=== PATIENT | female | born 1930 | race Caucasian/White ===

== ENCOUNTER 2018-12-30 22:19 | Observation (INO) | payer MEDICARE ==
[2018-12-30 22:57] LABS: #Basophils 0.1 thou/uL (0.0-0.2); #Eosinphils 0.1 thou/uL (0.0-0.7); #Lymphocytes 1.4 thou/uL (1.20-3.40); #Monocytes 0.9 thou/uL (0.11-0.59); #Neutrophils 8.6 thou/uL (1.40-6.50); %Basophils 0.6 % (0.0-1.0); %Eosinophils 1.1 % (0.0-10.0); %Lymphocytes 12.6 % (21.0-51.0); %Monocytes 8.2 % (0.0-10.0); %Neutrophils 77.5 % (42.0-75.0); Hemoglobin 11.9 g/dL (12.0-16.0); Mean Corpuscular HGB CONC 32.8 g/dL (32.0-36.0); Mean Corpuscular Hemoglobin 31.9 pg (27.0-31.0); Mean Corpuscular Volume 97.1 fL (78.0-98.0); Mean Platelet Volume 7.4 fL (7.4-10.4); Platelet Count 253 thou/uL (130-400); RBC Distribution Width 12.5 % (11.5-14.5); Red Blood Cell (RBC) Count 3.75 mill/uL (4.20-5.40)
--- NOTE | 2018-12-30 23:14 | RAD ---
AP VIEW CHEST: 12/30/18 HISTORY: Syncope. AP view chest is obtained on 12/30/18. Comparison made to previous exam from 07/22/18. AP view chest demonstrates cardiomegaly. There is calcification of the aorta. Bilateral shoulder oste oarthritic changes seen. No evidence of effusions, pneumonia or pneumothorax seen. IMPRESSION: No evidence of acute intrathoracic abnormality seen. POS: [facility]
[2018-12-30 23:22] LABS: ALT (SGPT) 12 U/L (8-55); AST (SGOT) 20 U/L (5-34); Alkaline Phosphatase 82 U/L (40-150); Anion Gap 14 mmol/L (10-20); BUN (Urea Nitrogen) 25 mg/dL (9.8-20.1); Bilirubin, Total 0.2 mg/dL (0.2-1.2); Calc. Creatinine Clearance 0 mL/min (70-130); Calcium 9.7 mg/dL (7.8-10.44); Carbon Dioxide 23 mmol/L (23-31); Chloride 105 mmol/L (98-107); Estimated GFR-MDRD 50; Globulin 3.3 g/dL (2.4-3.5); Glucose 126 mg/dL (83-110); Potassium 4.1 mmol/L (3.5-5.1); Protein, Total 7.3 g/dL (6.0-8.3); Sodium 138 mmol/L (136-145)
--- NOTE | 2018-12-30 23:29 | CT ---
CT BRAIN: 12/30/18 HISTORY: Syncope. Noncontrast enhanced CT images of the brain is obtained from base of the skull through the vertex. Br ain and bone windows obtained. Comparison made to previous exam from 04/13/18. Noncontrast enhanced CT images of the brain demonstrate diffuse cortical atrophy and deep white matte r ischemic changes. No evidence of acute intracranial masses , hemorrhages, strokes or contusions se en. The patient does appear to have a left middle cranial fossa arachnoid cyst which is stable. IMPRESSION: No evidence of acute intracranial abnormality seen. POS: [facility]
[2018-12-30 23:40] LABS: Bilirubin Small (Negative); Blood, Urine Negative (Negative); Clarity CLOUDY (Clear); Glucose, Urine (Dipstick) Negative (Negative); Leukocyte Trace (Negative); Nitrite Negative (Negative); Protein, Urine (Dipstick) 30 mg/dL (Neg-Trace); Urobilinogen 0.2 mg/dL (0.2-1.0)
[2018-12-30 23:42] LABS: Bacteria/HPF None Seen HPF (None Seen)
[2018-12-30 23:45] LABS: Pathc Cast-AUWi Flag 5.16 (0-2.49)
[2018-12-30 23:53] LABS: RBC/HPF 0-3 HPF (0-3)
[2018-12-30 23:55] LABS: Crystals/HPF 4+ CA OXALATE HPF (Negative); Hyaline Casts/LPF NONE SEEN LPF (0-3 Hyaline); Other Casts/LPF None Seen LPF (0-3 Hyaline); Renal Epithelial None Seen HPF (0-3); Transitional Epithelial NONE SEEN HPF (0-3)
[2018-12-31] MEDS ORDERED: cefTRIAXone\\ROCEPHIN 1 GM VIAL ONE (00:08)
[2018-12-31] MEDS ORDERED: Aspirin 325 MG TAB ONE (00:18)
[2018-12-31 02:08] VITALS: BMI 25.3
[2018-12-31 02:49] LABS: Troponin I Less than 0.010 ng/mL (< 0.028)
[2018-12-31 04:51] LABS: Folate (Folic Acid) 16.7 ng/mL (7.0-31.4)
[2018-12-31 07:08] LABS: Troponin I Less than 0.010 ng/mL (< 0.028)
[2018-12-31] MEDS ORDERED: Acetaminophen 325 MG TAB PO PRN (09:28)
[2018-12-31] MEDS ORDERED: Senokot S 8.6-50 MG TAB PO PRN (09:28)
--- NOTE | 2018-12-31 09:51 | ULT ---
BILATERAL CAROTID DUPLEX ULTRASOUND: HISTORY: Syncope TECHNIQUE: Grayscale, color-flow and spectral Doppler ultrasound imaging of the extracranial carotid artery syst ems was performed bilaterally. FINDINGS: Mild plaque formation. The peak systolic velocity in the right ICA measures 71 cm/s. The peak systolic velocity in the left ICA measures 52 cm/s. Vertebral flow: antegrade, bilaterally. . IMPRESSION: No hemodynamically significant stenosis of Both ICAs.
--- NOTE | 2018-12-31 13:13 | HP ---
PRIMARY CARE PHYSICIAN: Jose Raul Hopkins DO CHIEF COMPLAINT: Syncope. HISTORY OF PRESENT ILLNESS: Ms. Polk is an 88-year-old female, who presented to the emergency room yesterday for altered mental status just OUTPLACEMENT CONSULTANT. The patient reports they were sitting on a campfire while they were camping. The patient's daughter reports that the patient looked over 1 of the tents, asked who were sleeping in them and stated that she was going to get up and go have a nap that she was very tired and when she was about to get up and help her get up and go over to the tent. She said she had a syncopal episode. She reports the patient was not breathing, but was able to kind of "slap for around a little bit" and the patient eventually came to LOC lasted for about 1 minute and then, the patient's daughter stated while in the emergency room, the patient was back to her old self. The patient does not report any memory of this. Only other complaint is the increased urinary frequency and daughter reports that the patient had slept all day yesterday, which was unusual. She denied any cough, diarrhea, or fever. Denied any abdominal pain. Denies any pain whatsoever. Denies any changes in eating or drinking habits. The patient does report this is the fifth time the patient has become pale and diaphoretic, but the only time that she has ever syncopized. They have seen the patient's PCP for this, but has always been within normal limits when they go see him. So they have been unable to diagnose what has been going on with her. Daughter does report the patient does have slight dementia and she is on her medication that Dr. Hopkins has started. Daughter lives with the patient. She denies having a adaptive physical education specialist. Denies ever having a workup by Cardiology. Troponins x3 here were negative. There were no EKG changes. The patient is not on any medication for blood pressure. The patient had a CT of the brain while in the emergency room, which showed no evidence of acute intracranial abnormality. The patient also had a chest x-ray, which showed no acute intrathoracic abnormality. Urinalysis in the emergency room showed positive for leukocytes, white blood cells, and squamous cells, but no bacteria, that was sent off for culture and they did treat that with the Rocephin IV piggyback. BNP was 176. BUN is 25 and glucose 126. White blood cell count is 11 and hemoglobin 11.9. The patient subsequently admitted to the stroke unit for further management and for syncope workup. PAST MEDICAL HISTORY: Pertinent for degenerative joint disease and dementia. PAST SURGICAL HISTORY: Includes tonsillectomy, 2 sections, and appendectomy. PSYCHIATRIC HISTORY: None. SOCIAL HISTORY: She has no smoking history. Denies any alcohol or drug use. Lives at home with her family. ALLERGIES: CODEINE. CURRENT MEDICATIONS: 1. Risperidone 0.25 mg p.o. once a day. 2. Bentyl 20 mg p.o. b.i.d. p.r.n. 3. Primidone 50 mg p.o. once a day. 4. Donepezil 10 mg p.o. once a day. 5. Mirtazapine 15 mg p.o. once a day. 6. Meloxicam 7.5 mg p.o. daily. 7. Centrum Silver 1 tablet p.o. daily. 8. Vitamin D with calcium 1 tablet once a day. 9. Naproxen 250 mg p.o. b.i.d. as needed. REVIEW OF SYSTEMS: The patient reports increased frequency. She denies any mental status changes, paralysis, headache, paresthesias, sensory changes, numbness, tingling, weakness on extremities. Denies any chest pain, shortness of breath, or palpitations. All other systems are reviewed and negative unless mentioned in the HPI. PHYSICAL EXAMINATION: VITAL SIGNS: Blood pressure 115/66, pulse is 66, respirations 14, temperature is 98, and pO2 saturations are 97% on room air. CONSTITUTIONAL: The patient is nontoxic, appears pain free. She is alert and oriented to person, place, and time. HEENT: Head is atraumatic and normocephalic. Eyes; eyelids are normal to inspection. Pupils are equally round and reactive to light. Extraocular muscles are intact. ENT, mouth exam is normal. Mucous membranes are moist. NECK: Normal range of motion. Trachea is midline. RESPIRATORY: Chest, breath sounds are clear. CARDIOVASCULAR: Heart rate is regular rate and rhythm. Heart sounds are normal. ABDOMEN: Nontender. Bowel sounds are heard. BACK: Normal inspection. Normal range of motion. EXTREMITIES: Upper extremity, normal range of motion. Motor strength is normal. Sensation intact. Radial pulses are equal bilaterally. Lower extremity, normal range of motion. Motor strength is normal. Sensation intact. Pedal pulses are equal. No edema is noted. NEURO: The patient is oriented to person, place, and time. Speech is normal. No focal motor or sensory deficits are noted. SKIN: Warm, dry, and normal in color. IMAGING: EKG in the emergency room shows beats per minute 64, normal sinus rhythm, axis is left, low voltage QRS, possible lateral infarct, age indeterminate. PERTINENT LABS: Urine; positive leukocyte, nitrite negative, protein, ketone, and bilirubin positive, white blood cells and squamous cells are seen, no bacteria. Troponin x3 are undetectable. BNP 176. Sodium is 138, potassium 4.1, chloride 105, carbon dioxide 23, gap is 14, BUN is 25, creatinine is 1.04, estimated GFR is 50, glucose is 126, calcium is 9.7, bilirubin is 0.2. Liver enzymes are unremarkable. White blood cell count is 11, red blood cell count is 3.75, hemoglobin is 11.9, and hematocrit is 36.4. ASSESSMENT AND PLAN: 1. Syncope. We will obtain an MRI of the brain, carotid Dopplers, and echocardiogram. We will ask Cardiology to consult. 2. Urinary tract infection. Treat with Rocephin. We will send that off for culture. 3. Dementia. We will continue home medication. 4. Deep venous thrombosis and gastrointestinal prophylaxis will be started. Dr. Stubbs will be consulted for any further management recommendations. 5. Hospital course will be dependent on clinical findings. Job ID: [id number]
[2018-12-31] MEDS: Naproxen 500 MG TAB PO SCH (16:45)
[2018-12-31] MEDS ORDERED: NAPROXEN SODIUM 440 MG PO SCH (17:00)
--- NOTE | 2018-12-31 21:31 | CON ---
DATE OF CONSULTATION: HISTORY: Sandi Polk is an 88-year-old white female with apparently a history of mild dementia. She was camping out with her family and stood up and then apparently had a syncopal episode. She appeared to be apneic for a short period of time and then regained consciousness approximately 1 minute later. She denies any history of chest pain or shortness of breath. She apparently has had other episodes, where she becomes pale and diaphoretic, but never actually passes out. Brain CT scan in the emergency room showed no evidence of significant abnormalities. PAST MEDICAL HISTORY: She denies any history of hypertension, diabetes, or hypercholesterolemia. She does have dementia. PAST SURGICAL HISTORY: 1. Tonsillectomy. 2. Two sections. 3. Appendectomy. CURRENT MEDICATIONS: 1. Risperidone 0.25 mg daily. 2. Bentyl 20 mg b.i.d. p.r.n. 3. Primidone 50 mg daily. 4. Benazepril 10 mg daily. 5. Mirtazapine 15 mg daily. 6. Meloxicam 7.5 mg daily. 7. Centrum Silver. 8. Vitamin D. 9. Naproxen 250 b.i.d. p.r.n. ALLERGIES: CODEINE. SOCIAL HISTORY: She does not smoke or drink. REVIEW OF SYSTEMS: A 10-point review of systems unremarkable. PHYSICAL EXAMINATION: VITAL SIGNS: Blood pressure 115/56 and pulse of 68. She has not had any significant arrhythmias on the monitor. HEENT: PERRL. NECK: Supple. CHEST: Clear. CARDIAC: S1 and S2 are normal without any S3, S4, or murmurs. Carotid upstrokes normal without bruits. ABDOMEN: Normal bowel sounds without tenderness or organomegaly. EXTREMITIES: Revealed no clubbing, cyanosis, or edema. NEUROLOGIC: Grossly intact. SKIN: Warm and dry. LABORATORY DATA: EKG revealed normal sinus rhythm with left axis deviation, low voltage, possible lateral infarction. White count 11,000, hemoglobin 11.9, hematocrit 36.4, and platelets 253,000. Sodium 138, potassium 4.1, chloride 105 , carbon dioxide 23, BUN 25, creatinine 1.04, and glucose 124. Cardiac enzymes were negative x3. BNP 176.1. Urinalysis reveals 7-10 wbc's, 4-6 epithelial cells, no bacteria seen. Culture thus far is negative. IMPRESSION: 1. Episode of syncope of unknown etiology. 2. Mild dementia. 3. Osteoarthritis. PLAN: Echocardiogram and carotid Dopplers to be performed. The patient will continue to be monitored. It sounds as if she has had multiple such episodes of extreme weakness, but this is the only time she actually has had true episode of syncope. Further discussions will be held with the daughter when she is here. Our options would be to send her home with a month long monitor. However, if these episodes are less frequent, consideration could be given to implantation of an implantable loop recorder. Job ID: [id number] MTDD
[2018-12-31] MEDS: Famotidine 20 MG TAB PO SCH (21:37)
[2018-12-31] MEDS: Primidone 50 MG TAB PO SCH (21:37)
[2018-12-31] MEDS: Mirtazapine 15 MG TAB PO SCH (21:37)
[2018-12-31] MEDS: Donepezil HCl 10 MG TAB PO SCH (21:37)
[2018-12-31] MEDS: cefTRIAXone\\ROCEPHIN 1 GM in Sodium Chloride 0.9% 100 ML IVPB SCH (22:35)
[2019-01-01 05:40] LABS: #Eosinphils 0.2 thou/uL (0.0-0.7); #Monocytes 0.7 thou/uL (0.11-0.59); #Neutrophils 5.9 thou/uL (1.40-6.50); %Basophils 0.5 % (0.0-1.0); %Eosinophils 2.1 % (0.0-10.0); %Lymphocytes 22.9 % (21.0-51.0); %Monocytes 8.1 % (0.0-10.0); %Neutrophils 66.4 % (42.0-75.0); Hemoglobin 10.5 g/dL (12.0-16.0); Mean Corpuscular HGB CONC 33.5 g/dL (32.0-36.0); Mean Corpuscular Hemoglobin 32.6 pg (27.0-31.0); Mean Corpuscular Volume 97.4 fL (78.0-98.0); Mean Platelet Volume 7.6 fL (7.4-10.4); Platelet Count 232 thou/uL (130-400); RBC Distribution Width 12.7 % (11.5-14.5); Red Blood Cell (RBC) Count 3.21 mill/uL (4.20-5.40); White Blood Cell (WBC) Count 8.9 thou/uL (4.8-10.8)
[2019-01-01 06:09] LABS: Anion Gap 13 mmol/L (10-20); BUN (Urea Nitrogen) 21 mg/dL (9.8-20.1); Calc. Creatinine Clearance 38 mL/min (70-130); Calcium 9.1 mg/dL (7.8-10.44); Carbon Dioxide 21 mmol/L (23-31); Chloride 109 mmol/L (98-107); Estimated GFR-MDRD 57; Glucose 99 mg/dL (83-110); Potassium 4.3 mmol/L (3.5-5.1); Sodium 139 mmol/L (136-145)
[2019-01-01] MEDS: Famotidine 20 MG TAB PO SCH ×2 (08:26→21:31)
[2019-01-01] MEDS: Enoxaparin Sodium 40 MG/0.4 ML SYRINGE SC SCH (08:27)
[2019-01-01] MEDS: Naproxen 500 MG TAB PO SCH ×2 (08:27→17:50)
[2019-01-01] MEDS: Meloxicam 7.5 MG TAB PO SCH (08:27)
[2019-01-01] MEDS ORDERED: Non-Formulary Item 1 EACH (Cholecalciferol (Vitamin D3) [Vitamin D] 1,000 UNIT) PO SCH (09:00)
--- NOTE | 2019-01-01 11:58 | MRI ---
MRI Brain WO Con: 01/01/2019 12:00 AM CLINICAL HISTORY: Syncope. COMPARISON: CT head on 12/30/2018 FINDINGS: There is diffuse cerebral volume loss with prominence of the extra-axial spaces. Encephalomalacia inv olving the anterior left temporal lobe is again present. The ventricular system is normal in size, shape, and position for the degree of sulcal atrophy. There are punctate and patchy areas of increased FLAIR and T2-weighted signal intensity in the perive ntricular and subcortical white matter which are nonspecific but likely reflective of chronic small vessel ischemic changes. Increased FLAIR and T2-weighted signal intensity are also seen within the po ns bilaterally also likely reflective of chronic small vessel ischemic changes. There is no evidence of an acute infarction. The septum pellucidum and third ventricle are in the midline. Appropriate flow voids are demonstrated the base the brain. Jackson lenses are not visualized. The paranasal sinuses and remainder the skull base demonstrate a normal MRI appearance. IMPRESSION: 1. No acute intracranial abnormalities demonstrated. 2. Cerebral volume loss and chronic small vessel ischemic changes. 3. Stable encephalomalacia left anterior temporal lobe.
--- NOTE | 2019-01-01 19:41 | PRG ---
DATE OF SERVICE: 01/01/2019 SUBJECTIVE: Ms. Polk is a pleasant 88-year-old female with past medical history significant for hypertension and mild dementia along with osteoarthritis, who presented to the hospital after suffering a syncopal event while on a camping trip with her family at [facility]. This morning, the patient feels well. She denies any chest pain or shortness of breath. She denies any dizziness or weakness. Her appetite is good. She denies any palpitations or weak spells. OBJECTIVE: VITAL SIGNS: Blood pressure 139/59, pulse 68, O2 saturation is 96% on room air, respirations 18. The patient is afebrile. GENERAL: The patient is an elderly female, resting comfortably in bed, in no acute distress. HEENT: Head is atraumatic and normocephalic. Mucous membranes are moist. NECK: Supple. No lymphadenopathy. No carotid bruits. No JVD. CV: S1 and S2. Regular rate and rhythm. Soft systolic murmur grade 1/6. LUNGS: Respiratory rate is regular and nonlabored. Clear to auscultation bilaterally. ABDOMEN: Positive bowel sounds. Soft, nontender. No guarding or rebound. SKIN: Warm and dry. No rashes. NEUROLOGIC: Cranial nerves 2 through 12 are intact. The patient is nonfocal. EXTREMITIES: No edema. LABORATORY DATA: White blood cell count 8.9, hemoglobin 10.5, hematocrit 31.3, and platelet count is 232. Sodium 139, potassium 4.3, chloride 109, carbon dioxide 21, anion gap 13, BUN 21, creatinine 0.93, glucose is 99. GFR is 57. Serial troponin was negative x3. ASSESSMENT: 1. Syncope, unknown etiology, the patient does not appear to be orthostatic, possibly arrhythmogenic in nature. 2. Hypertension. 3. Mild dementia. 4. Mild urinary tract infection. 5. Moderate mitral regurgitation and aortic sclerosis per echocardiogram. PLAN: We will continue to follow Cardiology recommendations, which include a 30-day event monitor versus loop recorder. She has been seen in consultation with Dr. Titus. We will continue walking program along with PT and OT. Continue antibiotics for UTI, culture is pending. Anticipate discharge tomorrow. Further recommendations based on hospital course. Care discussed with Dr. Stubbs, who agrees with the above. Job ID: [id number]
[2019-01-01] MEDS: Mirtazapine 15 MG TAB PO SCH (21:31)
[2019-01-01] MEDS: Primidone 50 MG TAB PO SCH (21:31)
[2019-01-01] MEDS: Donepezil HCl 10 MG TAB PO SCH (21:31)
[2019-01-01] MEDS: cefTRIAXone\\ROCEPHIN 1 GM in Sodium Chloride 0.9% 100 ML IVPB SCH (22:01)
[2019-01-02 05:48] LABS: #Basophils 0.1 thou/uL (0.0-0.2); #Eosinphils 0.3 thou/uL (0.0-0.7); #Lymphocytes 1.8 thou/uL (1.20-3.40); #Monocytes 0.7 thou/uL (0.11-0.59); #Neutrophils 5.3 thou/uL (1.40-6.50); %Basophils 1.1 % (0.0-1.0); %Eosinophils 3.2 % (0.0-10.0); %Lymphocytes 21.8 % (21.0-51.0); %Monocytes 9.1 % (0.0-10.0); %Neutrophils 64.8 % (42.0-75.0); Hemoglobin 10.9 g/dL (12.0-16.0); Mean Corpuscular HGB CONC 34.1 g/dL (32.0-36.0); Mean Corpuscular Hemoglobin 33.1 pg (27.0-31.0); Mean Corpuscular Volume 96.9 fL (78.0-98.0); Mean Platelet Volume 7.8 fL (7.4-10.4); Platelet Count 224 thou/uL (130-400); RBC Distribution Width 12.5 % (11.5-14.5); Red Blood Cell (RBC) Count 3.29 mill/uL (4.20-5.40); White Blood Cell (WBC) Count 8.1 thou/uL (4.8-10.8)
[2019-01-02 06:00] LABS: Anion Gap 12 mmol/L (10-20); BUN (Urea Nitrogen) 20 mg/dL (9.8-20.1); Calc. Creatinine Clearance 44 mL/min (70-130); Calcium 8.9 mg/dL (7.8-10.44); Carbon Dioxide 23 mmol/L (23-31); Chloride 108 mmol/L (98-107); Estimated GFR-MDRD 68; Glucose 93 mg/dL (83-110); Potassium 4.3 mmol/L (3.5-5.1); Sodium 139 mmol/L (136-145)
[2019-01-02] MEDS: Enoxaparin Sodium 40 MG/0.4 ML SYRINGE SC SCH (08:56)
[2019-01-02] MEDS: Famotidine 20 MG TAB PO SCH (08:57)
[2019-01-02] MEDS: Meloxicam 7.5 MG TAB PO SCH (08:57)
[2019-01-02] MEDS: Naproxen 500 MG TAB PO SCH (08:57)
[2019-01-02 12:02] VITALS: BP 118/60; TEMP 97.8
--- NOTE | 2019-01-02 20:05 | DIS ---
DATE OF ADMISSION: 12/31/2018 DATE OF DISCHARGE: 01/02/2019 This is Danette Darby PA-C dictating a report for Chepe Stubbs MD. ALLERGIES: CODEINE. CHIEF COMPLAINT: Syncope. FINAL DIAGNOSES: 1. Syncope of unclear etiology, questionably arrhythmogenic. 2. Hypertension. 3. Mild dementia. 4. Mild urinary tract infection. 5. Moderate mitral regurgitation, aortic sclerosis per echocardiogram, preserved ejection fraction. LABORATORY RESULTS: White blood cell count 8.1, hemoglobin 10.9, hematocrit 31.8, and platelets are 224. Sodium 139, potassium 4.3, carbon dioxide 23, chloride 108, BUN 20, creatinine 0.8, and GFR 68. Troponin negative x3. BNP was 176. UA showed trace amounts of leukocyte esterase and bilirubin. IMAGING RESULTS: Echocardiogram, ejection fraction visually estimated at 50% to 55%. E/A flow reversal suggestive of diastolic dysfunction. Moderate MR. Sclerotic aortic valve. Mild TR. Brain CT, no acute intracranial abnormality seen. Chest x-ray, no evidence of acute intrathoracic abnormality seen. Carotid Doppler, no hemodynamically significant stenosis seen of either ICA. Brain MRI, no acute intracranial abnormalities demonstrated. Cerebral volume loss and chronic small-vessel ischemic changes. Stable encephalomalacia, left anterior temporal lobe. CONSULTATIONS: Dr. Titus of Cardiology. HOSPITAL COURSE: The patient is a very pleasant 88-year-old female, who was in her usual state of health, until she [place]. The patient was camping, attempts were set up and the patient was sitting around a campfire with her family. The patient states that while walking to a tent in order to go take a nap, the patient suffered a syncopal episode. Per the daughter, the patient seemed to have a brief period of apnea, but the patient's daughter did slap her cheeks and her mother regained consciousness and fairly quickly. The entire event lasted less than 1 minute. The patient has had several of "weak spells" in the past, somewhat similar to this, however, without ever any maxwell syncope. Prior workup has been negative. The patient was admitted for further workup and treatment. She denied any recent illnesses. She never experienced any chest pain, shortness of breath, palpitations, or other physical complaints. As above, her imaging workup was all negative for stroke or "carotid artery stenosis. She has ambulated with physical therapy with her walker and has had no dizziness or presyncope. She was seen in consultation with Dr. Titus, who did recommend a 30-day event recorder to rule out arrhythmogenic cause of syncope. UA revealed possible mild UTI, and she was treated for this as well. The patient feels well today. As mentioned, she has had no further syncope, presyncope, or dizziness. PHYSICAL EXAMINATION: VITAL SIGNS: Blood pressure 118/60, pulse 61, and O2 sat 93% on room air. GENERAL: The patient is an elderly female, resting comfortably in bed, in no acute distress. HEENT: Atraumatic and normocephalic. Mucous membranes are moist. NECK: Supple. No lymphadenopathy. No carotid bruits. No JVD. CARDIOVASCULAR: S1 and S2. Regular rate and rhythm. Soft systolic murmur grade 1/6 noted. LUNGS: Regular respiratory rate and pattern. Clear to auscultation. Nonlabored. ABDOMEN: Positive bowel sounds. Soft, nontender. No guarding or rebound. SKIN: Warm and dry. No rashes. NEUROLOGIC: Cranial nerves II through XII are intact. The patient is nonfocal. EXTREMITIES: No edema. CONDITION AT DISCHARGE: Stable. DISCHARGE MEDICATIONS: The patient will continue her home medications which include; 1. Vitamin D supplements 1000 units capsule daily. 2. Bentyl 20 mg tablet, one tablet p.o. b.i.d. p.r.n. 3. Donepezil 10 mg tablet, one tablet p.o. at bedtime. 4. Glucosamine supplement one tablet daily. 5. Meloxicam 7.5 mg one tablet p.o. daily. 6. Mirtazapine 15 mg tablet p.o. at bedtime daily. 7. Multivitamin daily. 8. Naproxen sodium 440 mg p.o. b.i.d. with meals. 9. Primidone 50 mg at bedtime. 10. She will continue cefdinir 300 mg capsule one capsule p.o. q.12 for the next 5 days. DISCHARGE DISPOSITION: Home. PLAN: The patient will wear her 30-day event monitor and monitor all as well for recurrent signs and symptoms of her syncope. She will follow up with Dr. Titus after wearing her device. Our workup here was largely negative and is not showing a clear etiology of her syncope. I have advised fall precautions and continued use of her walker. Care discussed with Dr. Stubbs, who does agree with the above. The patient was discharged home in good condition. Job ID: [id number]
== END 2019-01-02 14:10 | disposition home or self-care (01) ==
LOC: ERS 22:19 → 2SE 12-31 01:01
PROVIDERS: ADMIT Internal Medicine; ATTEND Internal Medicine
DX: R55 Syncope and collapse (principal); N39.0 Urinary tract infection, site not specified; F03.90 Unspecified dementia, unspecified severity, without behavioral disturbance, psychotic disturbance, mood disturbance, and anxiety; J45.909 Unspecified asthma, uncomplicated; I70.0 Atherosclerosis of aorta; I10 Essential (primary) hypertension; I34.0 Nonrheumatic mitral (valve) insufficiency; Z79.1 Long term (current) use of non-steroidal anti-inflammatories (NSAID); Z79.899 Other long term (current) drug therapy; Z88.5 Allergy status to narcotic agent
CPT/HCPCS: 70450; 70551; 71045; 80048 ×2; 80053; 82607; 82746; 83880; 84484 ×3; 85025 ×3; 87086; 93005; 93306; 93880; 96365; 96366; 96372 ×2; 96376; 97110; 97116; 97139 ×2; 99285; G0378 ×3; 36415; 81003; 81015; J0696; J1650; J3490

== ENCOUNTER 2019-06-25 14:03 | Emergency (ER) | payer MEDICARE ==
[2019-06-25 14:48] LABS: #Lymphocytes 0.9 thou/uL (1.20-3.40); #Neutrophils 8.4 thou/uL (1.40-6.50); %Basophils 0.2 % (0.0-1.0); %Eosinophils 0.4 % (0.0-10.0); %Lymphocytes 8.8 % (21.0-51.0); %Monocytes 9.7 % (0.0-10.0); Hemoglobin 11.5 g/dL (12.0-16.0); Mean Corpuscular HGB CONC 33.6 g/dL (32.0-36.0); Mean Corpuscular Volume 92.3 fL (78.0-98.0); Mean Platelet Volume 7.3 fL (7.4-10.4); Platelet Count 258 thou/uL (130-400); RBC Distribution Width 12.4 % (11.5-14.5); Red Blood Cell (RBC) Count 3.69 mill/uL (4.20-5.40); White Blood Cell (WBC) Count 10.4 thou/uL (4.8-10.8)
[2019-06-25 15:10] LABS: ALT (SGPT) 9 U/L (8-55); AST (SGOT) 15 U/L (5-34); Albumin 3.5 g/dL (3.4-4.8); Alkaline Phosphatase 76 U/L (40-110); Anion Gap 16 mmol/L (10-20); BUN (Urea Nitrogen) 18 mg/dL (9.8-20.1); Bilirubin, Total 0.4 mg/dL (0.2-1.2); Calc. Creatinine Clearance 0 mL/min (70-130); Calcium 9.5 mg/dL (7.8-10.44); Carbon Dioxide 21 mmol/L (23-31); Chloride 100 mmol/L (98-107); Estimated GFR-MDRD 75; Globulin 4.1 g/dL (2.4-3.5); Glucose 125 mg/dL (83-110); Potassium 4.1 mmol/L (3.5-5.1); Protein, Total 7.6 g/dL (6.0-8.3); Sodium 133 mmol/L (136-145)
--- NOTE | 2019-06-25 15:11 | RAD ---
Portable frontal chest radiograph: 06/25/2019 COMPARISON: 04/22/2019 HISTORY: Difficulty breathing FINDINGS: Stable degenerative changes bilateral shoulders. Stable atherosclerotic calcification of th e thoracic aorta. Stable calcification in the region of the mitral annulus. No pneumothorax or pleural fluid. No focal consolidation or alveolar edema. IMPRESSION: No acute findings.
[2019-06-25 17:19] LABS: Bilirubin Negative (Negative); Blood, Urine 2+ (Negative); Clarity Clear (Clear); Glucose, Urine (Dipstick) Normal (Negative); Leukocyte 75 Leu/uL (Negative); Nitrite Negative (Negative); Protein, Urine (Dipstick) 50 mg/dL (Neg-Trace); RBC/HPF 0-3 HPF (0-3); Squamous Epithelial 0-3 HPF (0-3); Urobilinogen Normal mg/dL (Less than 2)
[2019-06-25 17:21] LABS: Bacteria/HPF 1+ HPF (None Seen)
[2019-06-25] MEDS ORDERED: Amoxicillin/Potassium Clav 875 MG TAB ONE (17:45)
[2019-06-25] MEDS ORDERED: Azithromycin 250 MG TAB ONE (17:45)
--- NOTE | 2019-06-30 14:39 | EKG ---
Test Reason : Blood Pressure : / mmHG Vent. Rate : 094 BPM Atrial Rate : 094 BPM P-R Int : 160 ms QRS Dur : 106 ms QT Int : 350 ms P-R-T Axes : 023 -47 067 degrees QTc Int : 437 ms Normal sinus rhythm Possible Left atrial enlargement Low voltage QRS Left anterior fascicular block Possible Lateral infarct , age undetermined Abnormal ECG Confirmed by VIOLETA DURAN DO ([id number]), editor book SISSY SANCHEZ ([id number]) on 06/30/2019 2:38:42 PM Referred By: Confirmed By:VIOLETA DURAN DO
== END 2019-06-25 18:00 | disposition home or self-care (01) ==
LOC: ERS 14:03
DX: J18.9 Pneumonia, unspecified organism (principal); M62.81 Muscle weakness (generalized); F03.90 Unspecified dementia, unspecified severity, without behavioral disturbance, psychotic disturbance, mood disturbance, and anxiety; N39.0 Urinary tract infection, site not specified; Z79.899 Other long term (current) drug therapy
CPT/HCPCS: 36415; 51701; 71045; 80053; 81003; 81015; 83880; 84484; 85025; 87040; 87077; 87086; 87186; 93005; 96360; 96361; A4353